=== PATIENT | female | born 1990 | race Caucasian/White ===

== ENCOUNTER → 2020-07-26 11:56 | Outpatient (CLI) | payer SELFPAY ==
--- NOTE | 2020-07-26 12:04 | RAD_ITS ---
STUDY: HYSTEROSALPINGOGRAM. REASON FOR EXAM: Female, 29 years old. INFERTILITY FLUOROSCOPY TIME (if supplied): ( 2 minutes and 40 seconds ) minutes/seconds. 3 fluoroscopic images were obtained. TECHNIQUE: A hysterosalpingogram was performed by the cosmetic assembler. Imaging was submitted. COMPARISON: None. FINDINGS: The uterus is unremarkable. The fallopian tubes are patent bilaterally with free spill. RAD/Salpingogram IMPRESSION: Normal hysterosalpingogram. Electronically Signed: Narciso Joseph, at 15:13 EST , Service support ,
--- NOTE | 2020-07-26 13:42 | OP.PCM_ITS ---
Problem List (1) Infertility Status: Acute Report of Operation Date of Procedure: 07/26/20 Pre-Operative Diagnosis: Infertility Post-Operative Diagnosis: Infertility Surgery/Procedure Performed:: Hysterosalpingogram Description of Surgical Findings:: anterior flexed cervix manufacturing maintenance technician: None Type of Anesthesia:: Local Estimated Blood Loss (mL): 5 Description of Procedure: Reviewed with patient procedural r/b/i and consents signed. Time out performed and patient confirmed no allergies to medication. Patient was placed in lithotomy position and speculum introduced. Betadine was placed cervically. The uterus was sounded with dilator, however, the angle of the cervix was notably acute and anterior. The HSG catheter was unable to traverse the cervix despite attempted catheter manipulation. The Isovue 360 contrast injected without catheter balloon expansion due to this technical difficulty with suboptimal contrast injection into the uterus. I advise the patient to proceed with paracervical block and repeat attempt with a ZAMI uterine manipulator/chromotubation catheter. Reviewed with patient procedural risks and pt agreed to proceed. A paracervical block was placed with 20cc of 2% lidocaine, uterus sounded to 6cm and cervix was dilated further with De Leon dilators to 12 Persian. The chromotubation/ZAMU was placed into the uterus and secured. Contrast dye was injected under Xray Radiography with the presence of the Radiologist demonstrating normal uterine shape and bilateral tubal patency. Pt tolerated the procedure well. - Admit VTE Documentation VTE Present on Admission: No VTE Pharm Prophylaxis ordered?: No
== END ==
PROVIDERS: Referring Provider Obstetrics & Gynecology; Visit Provider Obstetrics & Gynecology
DX: N97.9 Female infertility, unspecified (principal)
CPT/HCPCS: 58340; 74740; Q9967